=== PATIENT | female | born 1955 | race Caucasian/White ===

== ENCOUNTER 2017-10-05 18:24 | Emergency (ER) | payer OTHER ==
[2017-10-05 18:32] VITALS: BMI 29.2
[2017-10-05 18:35] VITALS: BP 131/88; PULSE 76; RESP 18; TEMP 98.7; O2SAT 98
--- NOTE | 2017-10-05 19:52 | C.PDOC ---
History Of Present Illness 61 y/o female presents to ED with c/o intermittent diffuse rash for 1 week. Patient states rash returns to different parts of body and reports recently she started to use Meloxicam but is unsure if its the cause for symptoms. Patient was told by PMD to take Benadryl and reports no improvement just makes her drowsy. Patient denies lip swelling, sob, cough or any other complaints at this time. Time Seen by Provider: 10/05/17 19:02 Chief Complaint (Nursing): Abnormal Skin Integrity History Per: Patient History/Exam Limitations: no limitations Onset/Duration Of Symptoms: Days Current Symptoms Are (Timing): Still Present Past Medical History Reviewed: Historical Data, Nursing Documentation, Vital Signs Vital Signs: Last Vital Signs Temp 98.7 F 10/05/17 18:32 Pulse 76 10/05/17 18:32 Resp 18 10/05/17 18:32 BP 131/88 10/05/17 18:32 Pulse Ox 98 10/05/17 21:18 - Medical History PMH: Arthritis, HTN, Hypercholesterolemia Surgical History: Cholecystectomy Family History: States: No Known Family Hx - Social History Hx Alcohol Use: No Hx Substance Use: No - Immunization History Hx Tetanus Toxoid Vaccination: No Hx Influenza Vaccination: No Hx Pneumococcal Vaccination: No Review Of Systems Constitutional: Negative for: Fever, Chills Respiratory: Negative for: Cough, Shortness of Breath Skin: Positive for: Rash Physical Exam - Physical Exam Appears: Non-toxic, No Acute Distress Skin: Warm, Dry, Rash (scattered uritcaria to different areas of body. No vesicular lesions ) Head: Atraumatic, Normacephalic Eye(s): bilateral: Normal Inspection Oral Mucosa: Moist Tongue: Normal Appearing, No Swelling Lips: Normal Appearing, No Swelling Throat: Normal, No Erythema, No Exudate Extremity: Normal ROM, Capillary Refill (<2 seconds), No Deformity Neurological/Psych: Oriented x3, Normal Speech, Normal Cognition ED Course And Treatment O2 Sat by Pulse Oximetry: 98 (RA) Pulse Ox Interpretation: Normal Progress Note: Prednisone given. Patient feels improvent, discharged on medication and advised f.u with PMD in 1-2 days. 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 - Scribe Statement The provider has reviewed the documentation as recorded by the Isaiasibgloria Bautista All medical record entries made by the Maddy were at my direction and personally dictated by me. I have reviewed the chart and agree that the record accurately reflects my personal performance of the history, physical exam, medical decision making, and the department course for this patient. I have also personally directed, reviewed, and agree with the discharge instructions and disposition.
== END 2017-10-05 20:06 | disposition home or self-care (01) ==
LOC: C.ER 18:24
DX: L50.0 Allergic urticaria (principal)